=== PATIENT | male | born 1955 ===

== ENCOUNTER 2017-03-13 20:35 | Emergency (ER) | payer BC ==
[2017-03-13 20:35] VITALS: BMI 29.8
--- NOTE | 2017-03-13 21:56 | ED PDOC ---
Lower Extremity Pain/Injury Time Seen by Provider: 03/13/17 21:43 Chief Complaint (Nursing): Lower Extremity Problem/Injury Chief Complaint (Provider): Left knee pain History Per: Patient History/Exam Limitations: no limitations Onset/Duration Of Symptoms: Worse Since (yesterday), Other (one year) Additional Complaint(s): Patient is a 61 y/o male with a past medical history of uncontrolled diabetes presenting to the emergency department for left knee pain ongoing for one year that has become worse since yesterday. Reports snapping noises when bending his knee and states that the pain is getting to the point where he feels that he may be at risk for falling. Also notes stable toe discoloration for the past year. The toe has been clinically imaged before. Denies trauma or other complaints. Of note, patient does not check his blood sugar every day and does not know his hemoglobin A1C. PCP: none provided Past Medical History Reviewed: Historical Data, Nursing Documentation, Vital Signs Vital Signs: Last Vital Signs Temp 98 F 03/13/17 20:41 Pulse 99 H 03/13/17 20:41 Resp 16 03/13/17 20:41 BP 189/120 H 03/13/17 20:41 Pulse Ox 99 03/13/17 20:41 - Medical History PMH: Diabetes, HTN Denies: Chronic Kidney Disease - Family History Family History: States: Unknown Family Hx - Social History Current smoker - smoking cessation education provided: No Ex-Smoker (has not smoked in the last 12 months): No Alcohol: None Drugs: Denies - Immunization History Hx Tetanus Toxoid Vaccination: No (pt denies) Hx Influenza Vaccination: No Hx Pneumococcal Vaccination: No - Home Medications Home Medications: Ambulatory Orders Medication Instructions Recorded Cephalexin [cephalexin] 500 mg PO QID #28 cap 06/27/16 Clindamycin [Cleocin] 300 mg PO Q6 #28 cap 06/27/16 MetFORMIN [glucOPHAGE] 1,000 mg PO DAILY 06/27/16 Naproxen [Naprosyn] 500 mg PO BID #30 tablet 03/13/17 hydroCHLOROthiazide [Hydrodiuril] 25 mg PO DAILY #30 tab 03/13/17 - Allergies Allergies/Adverse Reactions: Allergies Allergy/AdvReac Type Severity Reaction Status Date / Time No Known Allergies Allergy Verified 02/14/15 19:48 Review of Systems ROS Statement: Except As Marked, All Systems Reviewed And Found Negative Musculoskeletal: Positive for: Other (worsening left knee pain) Skin: Positive for: Other (discoloration of toe) Physical Exam - Reviewed Nursing Documentation Reviewed: Yes Vital Signs Reviewed: Yes - Physical Exam Appears: Positive for: Well, Non-toxic, No Acute Distress Head Exam: Positive for: ATRAUMATIC, NORMAL INSPECTION, NORMOCEPHALIC Skin: Positive for: Normal Color, Warm, Dry Eye Exam: Positive for: Normal appearance Neck: Positive for: Normal Cardiovascular/Chest: Positive for: Regular Rate, Rhythm Respiratory: Negative for: Accessory Muscle Use, Respiratory Distress Extremity: Positive for: Normal ROM, Tenderness (nonpoint tenderness of left knee), Deformity (evidence of peripheral vascular disease on left leg with discoloration of skin. Second toe of left foot shows stable ulceration), Swelling (mild effusion to medial aspect of left knee), Other (sensation intact. negative valgus and negative varus.). Negative for: Pedal Edema Neurologic/Psych: Positive for: Alert, Oriented (x3) - ECG O2 Sat by Pulse Oximetry: 99 (RA) Pulse Ox Interpretation: Normal Medical Decision Making Medical Decision Making: Time: 21:48 Initial impression: ligament disc strain or sprain vs. arthritis Initial plan: Left knee x-ray Motrin 600 mg PO Accucheck Reevaluation 22:40 Patient is stable for discharge. Prescribed Hydrodiuril and Naprosyn. Instructed patient to follow up with referred clinic and to return to ED if symptoms worsen. INstructed patient on importance of proper blood sugar and hypertension control. Clinical impression: Hypertension and knee pain Scribe Attestation: Documented by Negrita Rivera, acting as a scribe for Wolf Rust MD. Provider Scribe Attestation: All medical record entries made by the Scribe were at my direction and personally dictated by me. I have reviewed the chart and agree that the record accurately reflects my personal performance of the history, physical exam, medical decision making, and the department course for this patient. I have also personally directed, reviewed, and agree with the discharge instructions and disposition. Disposition - Clinical Impression Clinical Impression: Knee pain, Hypertension - Patient ED Disposition Is Patient to be Admitted: No Counseled Patient/Family Regarding: Studies Performed, Diagnosis, Need For Followup, Rx Given - Disposition Referrals: Bear Gastelum MD [Staff Provider] - Disposition: Routine/Home Disposition Time: 22:40 Condition: STABLE Prescriptions: hydroCHLOROthiazide [Hydrodiuril] 25 mg PO DAILY #30 tab Naproxen [Naprosyn] 500 mg PO BID #30 tablet Instructions: Knee Pain (ED), Hypertension (ED) Forms: [facility] (Romansh)
[2017-03-13 22:18] VITALS: RESP 18; TEMP 98.1
[2017-03-13 23:12] VITALS: BP 178/100; PULSE 71; O2SAT 100
--- NOTE | 2017-03-14 09:06 | RAD ---
PROCEDURE: Left Knee Radiographs. HISTORY: Pain. COMPARISON: Left knee series May 13, 2010 FINDINGS: BONES: No acute fracture dislocation is appreciated this time. There is advanced degenerative disease appreciated in all 3 joint compartments including gross patellofemoral osteophyte development and mild to moderate medial and lateral femorotibial compartment osteophytes. Marked joint space narrowing seen in all 3 joint compartments but is worst at the medial femorotibial compartment. Articular cortical sclerosis also appreciated. No destructive bony lesion identified. JOINTS: As above JOINT EFFUSION: Stable [id number] cysts suprasellar bursa effusion noted. OTHER FINDINGS: None. IMPRESSION: Interval worsening of advanced osteoarthritis. No acute fracture or dislocation identified. [id number] suprapatellar bursa effusion identified.
== END 2017-03-13 23:11 | disposition home or self-care (01) ==
LOC: H.ER 20:35
DX: M17.12 Unilateral primary osteoarthritis, left knee (principal); I10 Essential (primary) hypertension; E11.9 Type 2 diabetes mellitus without complications; Z79.84 Long term (current) use of oral hypoglycemic drugs